=== PATIENT | male | born 1965 | race Caucasian/White ===

== ENCOUNTER 2019-01-08 12:05 | Inpatient (IN) | payer MEDICARE, OTHER ==
[2019-01-08 13:12] LABS: HEMATOCRIT 38.3 % (41.0-60); HEMOGLOBIN 12.9 gm/dL (12-16); MEAN CORPUSCULAR HGB CONC 33.7 pg (28.0-36.0); MEAN PLATELET VOLUME 6.6 fl; RED BLOOD COUNT 4.03 Mil/cmm (4.30-5.70); RED CELL DISTRIBUTION WIDTH 13.1 % (11.5-20.0)
[2019-01-08 13:15] LABS: PLATELET COUNT 79 Th/cmm (150-400); WHITE BLOOD COUNT 3.4 Th/cmm (4.8-10.8)
[2019-01-08 13:24] LABS: ALB/GLOB RATIO 1.6 (1.0-1.8); ALBUMIN 3.8 gm/dL (4.2-5.5); ALKALINE PHOSPHATASE 95 U/L (34-104); BILIRUBIN,TOTAL 1.4 mg/dL (0.3-1.0); BUN - UREA NITROGEN 14 mg/dL (7-25); CALCIUM SERUM 8.6 mg/dL (8.6-10.3); CARBON DIOXIDE 25.8 mEq/L (21.0-31.0); CHLORIDE 105 mEq/L (98-107); CREATININE - SERUM 0.7 mg/dL (0.7-1.3); GFR AFRICAN-AMERICAN > 60.0 ml/min (>90); GFR NON AFRICAN-AMERICAN > 60.0 ml/min; GLUCOSE 133 mg/dL (70-105); MAGNESIUM 1.7 mg/dL (1.9-2.7); POTASSIUM SERUM 3.8 mEq/L (3.5-5.1); SGOT 37 U/L (13-39); SGPT/ALT 41 U/L (7-52); SODIUM SERUM 136 mEq/L (136-145); TOTAL PROTEIN,SERUM 6.2 gm/dL (6.0-8.3)
[2019-01-08 13:40] LABS: BAND NEUTROPHILE 0 % (0-10); BASOPHIL 0 % (0-3); EOSINOPHIL 4 % (0-5); LYMPHOCYTE 32 % (20-50); MONOCYTE 6 % (2-10); NEUTROPHILS 58 % (40-80); PLATELET ESTIMATE DECREASED PLATELETS (NORMAL)
--- NOTE | 2019-01-08 14:02 | Diagnostic Imaging Report ---
CT scan lumbar spine HISTORY: Lower extremity weakness Axial sections were obtained through the lumbar spine. Additional sagittal and coronal reformatted images are provided. The exam of the L5-S1 level demonstrates a relatively large (greater than 5 mm) extradural density which appears related to a relatively large disc protrusion resulting in encroachment on the right anterior aspect of the thecal sac. Calcification noted with in the disc annulus. Associated displacement of the right S1 nerve root. Hypertrophic bony changes noted about the facet joints bilaterally. Bilateral neural foramina encroachment. The L4-5 level demonstrates narrowing of the disc interspace. Air is seen within the interspace reflecting degenerative disc disease. There is a large (8mm) hypertrophic spur that results in a corresponding extradural indentation on the right anterior subarachnoid space with encroachment on the anterior margin of the thecal sac. Combined with hypertrophic bony changes about the facet joints there is a moderate to severe degree of spinal stenosis at this level. Bilateral neural foraminal encroachment. The L3-4 level demonstrates narrowing of the interspace. Air is seen within the interspace reflecting degenerative disc disease. There appears to be a moderate (4 mm) circumferential bulging annulus resulting in a corresponding extradural indentation on the anterior aspect of the thecal sac. Hypertrophic changes about the facet joints as well as posterior ligamentous thickening combine to create a severe degree of spinal stenosis at this level. Bilateral neural foramina encroachment. There is a normal disc contour seen at the L1-2 and L2-3 levels. Atherosclerotic calcification seen in the aorta and iliac artery regions. IMPRESSION: 1. Relatively large multilevel extradural abnormalities L3-4, L4-5, and L5-S1 as described above. Additional degenerative changes as noted above. Combination of findings results in moderate to severe spinal stenosis at L3-4 and L4-5. An MRI exam would provide additional detail and assessment if possible. 2. Atherosclerotic vascular changes
--- NOTE | 2019-01-08 14:02 | Diagnostic Imaging Report ---
Portable chest x-ray HISTORY: Shortness of breath. The heart appears enlarged. No focal pulmonary processes. No hilar or mediastinal abnormalities. IMPRESSION: 1. No acute abnormalities 2. Cardiomegaly
[2019-01-08 14:27] LABS: URINE SOURCE CLEAN C
[2019-01-08 14:34] LABS: URINE BILIRUBIN NEGATIVE (NEGATIVE); URINE BLOOD NEGATIVE (NEGATIVE); URINE GLUCOSE (UA) NEGATIVE (NEGATIVE); URINE KETONE NEGATIVE (NEGATIVE); URINE LEUKOCYTE ESTERASE NEGATIVE (NEGATIVE); URINE NITRATE NEGATIVE (NEGATIVE); URINE PH 5.5 (4.6 - 8.0); URINE PROTEIN NEGATIVE (NEGATIVE)
[2019-01-08 14:48] LABS: URINE CLARITY CLEAR (CLEAR); URINE COLOR YELLOW; URINE MICROSCOPIC INDICATED? YES
[2019-01-08 14:49] LABS: URINE BACTERIA FEW /hpf (NONE SEEN); URINE EPITHELIAL CELLS NONE SEEN /lpf (FEW); URINE RBC NONE SEEN /hpf (0-5); URINE WBC 0-2 /hpf (0-5)
[2019-01-08 15:00] LABS: AMPHETAMINE URINE NEGATIVE (NEGATIVE); BARBITURATES URINE NEGATIVE (NEGATIVE); CANNABINOID THC NEGATIVE (NEGATIVE); COCAINE METABOLITE QUAL URINE NEGATIVE (NEGATIVE); METHADONE URINE NEGATIVE (NEGATIVE); METHAMPHETAMINES QUAL URINE NEGATIVE (NEGATIVE); OPIATES (MORPHINE) QUAL. URINE NEGATIVE (NEGATIVE); PHENCYCLIDINE (PCP) URINE NEGATIVE (NEGATIVE); TRICYCLICS (TCA) QUAL. URINE NEGATIVE (NEGATIVE)
[2019-01-08 15:02] LABS: BENZODIAZEPINES QUAL URINE NEGATIVE (NEGATIVE)
--- NOTE | 2019-01-08 15:02 | ED Physician Chart ---
ED Chief Complaint/HPI - Patient Information Date Seen:: 01/08/19 Time Seen:: 12:05 Chief Complaint:: failure to thrive History of Present Illness:: failure to thrive in a 53 year old male who can no longer take care of himself. Allergies:: Allergies Allergy/AdvReac Type Severity Reaction Status Date / Time No Known Allergies Allergy Verified 01/08/19 12:21 Vitals:: Vital Signs - 8 hr 01/08/19 12:05 Temp 97.7 F HR 61 RR 18 BP 170/83 O2 Sat % 98 Historian:: Patient Review:: Nurse's Note Reviewed ED Review of Systems - Review of Systems General/Constitutional: No fever, No chills, Weakness, No diaphoresis, No loss of appetite, Other (failure to thrive) Skin: No skin lesions, No rash, No bruising Head: No headache, No light-headedness Eyes: No loss of vision, No pain, No diplopia ENT: No earache, No nasal drainage, No sore throat, No tinnitus Neck: No neck pain, No swelling, No thyromegaly, No stiffness, No mass noted Cardio Vascular: No chest pain, No palpitations, No PND, No orthopnea, No edema Pulmonary: No SOB, No cough, No sputum, No wheezing GI: No nausea, No vomiting, No diarrhea, No pain, No melena, No hematochezia, No constipation, No hematemesis G/U: No dysuria, No frequency, No hematuria Musculoskeletal: No bone or joint pain, No muscle pain, Other (chronic BLE weakness from neuropathy and lumbar discs?) Endocrine: No polyuria, No polydipsia Psychiatric: No prior psych history, No depression, No anxiety, No suicidal ideation Hematopoietic: Bruising, No lymphadenopathy Allergic/Immuno: No urticaria, No angioedema Neurological: No syncope, No focal symptoms, No weakness, No paresthesia, No headache, No seizure, No dizziness, No confusion, No vertigo ED Past Medical History - Past Medical History Obtainable: Yes Past Medical History: HTN, DM, Other (neuropathy; morbid obesity; h/o liver failure with some recovery of liver; cirrhosis) Surgical History: other (left knee surgery; esophageal variceal surgery; brain surgery) Family Medical History - Family Member Mother History Unknown: Yes ED Physical Exam - Physical Examination General/Constitutional: Awake, Well-developed, well-nourished, Alert, No distress, GCS 15, Non-toxic appearing, Ambulatory Other Gen/Cons comments:: morbidly obese Head: Atraumatic Eyes: Lids, conjuctiva normal, PERRL, EOMI Other Skin comments:: venous stasis changes on BLE with pencil tipping of all toes from chronically poor blood supply. ENMT: External ears, nose nl Neck: Nontender, No nuchal rigidity, No stridor Respiratory: Nl effort/Exclusion, Clear to Auscultation, No Wheeze/Rhonchi/Rales Cardio Vascular: RRR, No murmur, gallop, rubs, NL S1 S2 GI: No tenderness/rebounding/guarding, No organomegaly, No hernia, Normal BS's, Nondistended Other GI comments:: bruising R abdomen from insulin shot : No CVA tenderness Other Extremities comments:: Strength of BLE is 2/5 to 3/5 (chronic) from diabetic neuropathy vs. lumbar discs vs. spinal stenosis. Neuro/Psych: Alert/oriented, Judgement/insight normal, Mood normal Other Misc comments:: chronic pain to the right of the lumbar spine. ED Labs/Radiology/EKG Results - Lab Results Results: Laboratory Tests 01/08/19 01/08/19 01/08/19 12:57 12:57 12:57 WBC 3.4 L RBC 4.03 L Hgb 12.9 Hct 38.3 L MCV 95.0 MCH 32.0 H MCHC Differential 33.7 RDW 13.1 Plt Count 79 L MPV 6.6 Add Manual Diff YES Band Neutrophils % 0 Neutrophils (Manual) 58 Lymphocytes 32 Monocytes 6 Eosinophils 4 Basophils 0 Platelet Estimate DECREASED PLATELETS Sodium 136 Potassium 3.8 Chloride 105 Carbon Dioxide 25.8 Anion Gap 9.0 BUN 14 Creatinine 0.7 Est GFR ( Amer) > 60.0 Est GFR (Non-Af Amer) > 60.0 BUN/Creatinine Ratio 20.0 Glucose 133 H Whole Bld Lactic Acid Calcium 8.6 Phosphorus 3.0 Magnesium 1.7 L Total Bilirubin 1.4 H AST 37 ALT 41 Alkaline Phosphatase 95 Troponin I Total Protein 6.2 Albumin 3.8 L Globulin 2.4 Albumin/Globulin Ratio 1.6 TSH 0.86 Urine Source Urine Color Urine Clarity Urine pH Ur Specific [place] Urine Protein Urine Glucose (UA) Urine Ketones Urine Blood Urine Nitrate Urine Bilirubin Urine Urobilinogen Ur Leukocyte Esterase Urine RBC Urine WBC Ur Epithelial Cells Urine Bacteria 01/08/19 01/08/19 01/08/19 12:57 12:57 14:10 WBC RBC Hgb Hct MCV MCH MCHC Differential RDW Plt Count MPV Add Manual Diff Band Neutrophils % Neutrophils (Manual) Lymphocytes Monocytes Eosinophils Basophils Platelet Estimate Sodium Potassium Chloride Carbon Dioxide Anion Gap BUN Creatinine Est GFR ( Amer) Est GFR (Non-Af Amer) BUN/Creatinine Ratio Glucose Whole Bld Lactic Acid 0.76 Calcium Phosphorus Magnesium Total Bilirubin AST ALT Alkaline Phosphatase Troponin I 0.03 Total Protein Albumin Globulin Albumin/Globulin Ratio TSH Urine Source CLEAN C Urine Color YELLOW Urine Clarity CLEAR Urine pH 5.5 Ur Specific [place] >= 1.030 Urine Protein NEGATIVE Urine Glucose (UA) NEGATIVE Urine Ketones NEGATIVE Urine Blood NEGATIVE Urine Nitrate NEGATIVE Urine Bilirubin NEGATIVE Urine Urobilinogen 2.0 Ur Leukocyte Esterase NEGATIVE Urine RBC NONE SEEN Urine WBC 0-2 Ur Epithelial Cells NONE SEEN Urine Bacteria FEW ED Assessment - Assessment General Assessment: CXR per my reading: cardiomegaly. Otherwise negative. EKG from 13:03:40 p.m. reveals normal sinus rhythm, RBBB, old inferior infarct. NSSTT wave changes. called Dr. Briones to admit the patient who has agreed to do so. CT scan of the lumbar area reveals relatively large multilevel extradural abnormalities L3-4, L4-5 and L5-S1 as descrbed above. Additional degenerative changes as noted above. Combination of dingins results in moderate to severe spinal stenosis at L3-4 and L4-5. An MRI exam would provide additional detail and assessment if possible. Atherosclerotic vascular changes. ED Septic Shock - . Is Septic Shock (SBP<90, OR Lactate>4 mmol\L) present?: No - <6hrs of presentation: Vital Signs: Vital Signs - 8 hr 01/08/19 12:05 Temp 97.7 F HR 61 RR 18 BP 170/83 O2 Sat % 98 ED Reassessment (Disposition) - Reassessment Reassessment Condition:: Unchanged - Diagnosis Diagnosis:: Failure to thrive Morbid obesity Diabetes Hypertension Neuropathy Spinal stenosis - Patient Disposition Discharge/Transfer:: Acute Care w/in this hosp Admitted to:: Med/Surg Condition at Disposition:: Stable, Unchanged
[2019-01-08] MEDS: D5-0.45NS 1,000 ML IV SCH (18:10)
[2019-01-08] MEDS ORDERED: Hydrocodone/APAP 10 mg/325 mg Tab ONE (18:17)
[2019-01-08] MEDS: Atorvastatin Calcium 10 MG TAB PO SCH (18:17)
[2019-01-08] MEDS: Hydrocodone/APAP 10 mg/325 mg Tab PO PRN (18:18)
[2019-01-09] MEDS: Hydrocodone/APAP 10 mg/325 mg Tab PO PRN ×4 (00:10→23:29)
[2019-01-09 05:00] LABS: % EOSINOPHILS 4.6 % (0.0-5.0); % LYMPHOCYTES 37.1 % (20.0-50.0); % MONOCYTES 8.8 % (2.0-10.0); % NEUTROPHILS 49.5 % (40.0-80.0); EOSINOPHILE ABSOLUTE 0.1 Th/cmm (0.1-0.4); HEMATOCRIT 37.6 % (41.0-60); HEMOGLOBIN 12.9 gm/dL (12-16); MEAN CELL VOLUME 95.1 fl (80-99); MEAN CORPUSCULAR HEMOGLOBIN 32.6 pg (26.0-30.0); MEAN CORPUSCULAR HGB CONC 34.3 pg (28.0-36.0); MEAN PLATELET VOLUME 6.8 fl; MONOCYTE ABSOLUTE 0.2 Th/cmm (0.3-1.0); NEUTROPHILE ABSOLUTE 1.3 Th/cmm (1.8-8.0); PLATELET COUNT 56 Th/cmm (150-400); RED BLOOD COUNT 3.96 Mil/cmm (4.30-5.70); RED CELL DISTRIBUTION WIDTH 12.7 % (11.5-20.0)
[2019-01-09 05:05] LABS: WHITE BLOOD COUNT 2.6 Th/cmm (4.8-10.8)
[2019-01-09 05:13] LABS: ANION GAP 9.6 (7.0-16.0); BUN - UREA NITROGEN 14 mg/dL (7-25); CALCIUM SERUM 8.5 mg/dL (8.6-10.3); CARBON DIOXIDE 26.3 mEq/L (21.0-31.0); CHLORIDE 107 mEq/L (98-107); CREATININE - SERUM 0.7 mg/dL (0.7-1.3); GFR AFRICAN-AMERICAN > 60.0 ml/min (>90); GFR NON AFRICAN-AMERICAN > 60.0 ml/min; GLUCOSE 148 mg/dL (70-105); POTASSIUM SERUM 3.9 mEq/L (3.5-5.1); SODIUM SERUM 139 mEq/L (136-145)
[2019-01-09] MEDS: D5-0.45NS 1,000 ML IV SCH (05:29)
[2019-01-09] MEDS: INSULIN LISPRO 100 UNIT/ML VIAL SUBQ SCH ×3 (07:38→16:38)
[2019-01-09] MEDS: Atorvastatin Calcium 10 MG TAB PO SCH (08:46)
[2019-01-09] MEDS ORDERED: Pneumococcal Vaccine 0.5 mL Vial IM ONE (09:00)
--- NOTE | 2019-01-09 11:41 | History and Physical ---
History of Present Illness - HPI Chief Complaint: Failure to thrive. HPI: CONSTANTINE VASQUEZ MD HISTORY AND PHYSICAL Guillermo Huertas : 1965 Admit date: 01/08/2019 Date: 01/09/2019 H&P Chief complaint Patients current complaint is Failure to thrive. Patient has history of Liver Failure, Weakness of Lower Extremities, Diabetes, Hypertension, Morbid Obesity and Neuropathy. Present illness 53 y/o male patient was recently admitted to [facility] due to complaints of Failure to thrive. Patient has history of Liver Failure, Weakness of Lower Extremities, Diabetes, Hypertension, Morbid Obesity and Neuropathy. Patient was diagnosed with Failure to Thrive, Chronic Bilateral Lower Extremities Weakness from Neuropathy, Neuropathy, Diabetes, Hypertension, Spinal Stenosis and Morbid Obesity. Patient had a complete workup done. I will follow patient, treat and monitor accordingly. Patient will have a Neurology consult and Patient will have Physical Therapy and Rehabilitation. Patient was transferred here on January 08, 2019 for further care management. Review of systems Vitals: Reviewed. General: Normotensive, in no acute distress. Head: Normocephalic, no lesions. Eyes: PERRLA, EOM'S full, conjunctive clear, fundi grossly normal. Neck: Supple, no masses, no thyromegaly, no bruits. Lungs: Clear, no rales, no rhonchi, no wheezes. Heart: RR, no murmurs, no rubs, no gallops. Abdomen: Soft, no tenderness, no masses, BS normal. Musculoskeletal: Chronic Bilateral Lower Extremities Weakness. Psych: Normal mood and affect. Skin: Venous stasis changes on BLE with pencil topping of all toes. Neurological: Denies headache and loss of consciousness. Past medical history Liver Failure, Weakness of Lower Extremities, Diabetes, Hypertension, Morbid Obesity and Neuropathy. Past surgical history Brain Surgery; Esophageal Variceal Surgery and Left Knee Surgery. Medications Please refer to medication reconciliation sheet. Allergies No known drug allergy. Family history Noncontributory. Social history Nonsmoker, No Alcohol use, No drug abuse. Physical Exam- HEENT: Head is normocephalic, atraumatic. NECK: Supple. No JVD. No carotid bruit. CHEST: Bilateral breath sounds. No crackles. No wheezing. HEART: S1, S2 within normal limits. Regular rhythm. No murmur. No gallop. ABDOMEN: soft, non-tender, non-distended. Bowel sounds present. EXTREMITIES: Chronic Bilateral Lower Extremities Weakness. NEUROLOGIC: Alert oriented x 3. Assessment and Impression Failure to Thrive. Diabetes Chronic Bilateral Lower Extremities Weakness from Neuropathy. Neuropathy. Hypertension. Spinal Stenosis. Morbid Obesity. Plan Continuation of care Continue present meds as directed Monitor vitals, continue B/P meds Accu-check daily, continue DM meds Monitor Diet/Nutritional support Neurology consult Monitor Pain, Pain Management Physical Therapy and Rehabilitation Occupational Therapy Fall precaution Safety precaution Supportive care Will Monitor patient and continue current treatment plan as ordered. Vital Signs: Last Vital Signs Temp 97.1 F 01/09/19 04:00 Pulse 57 01/09/19 04:00 Resp 18 01/09/19 08:00 BP 130/65 01/09/19 04:00 Pulse Ox 99 01/09/19 04:00 Past Medical History Cardiovascular: Report: HTN Pulmonary: Report: No Pertinent Hx SR. OPERATIONS MANAGER: Report: Other (Neuropathy.) GI: Report: No Pertinent Hx Psych: Report: No Pertinent Hx Musculoskeletal: Report: Weakness, Other (Chronic pain of lumbar spine.) Rheumatologic: Report: No pertinent Hx Infectious Disease: Report: No Pertinent Hx Renal/: Report: No Pertinent Hx Endocrine: Report: Diabetes Dermatology: Report: No Pertinent Hx - Past Surgical History Past Surgical History: Other (History of Brain Surgery, Esophageal Variceal and Left knee surgery.) Family Medical History - Family Member Mother History Unknown: Yes Hx Family Hypertension: Yes Social History Smoke: No Alcohol: None Drugs: None Domestic Violence: Negative - Medications Home Medications: Home Medication Medication Instructions Recorded Type Atorvastatin Calcium [Lipitor] 20 mg PO DAILY 01/08/19 History Ergocalciferol (Vitamin D2) 2,000 unit PO DAILY 01/08/19 History [Vitamin D2] Gabapentin 300 mg PO TID 01/08/19 History Insulin Glargine,Hum.rec.anlog 60 unit SUBQ BID 01/08/19 History [Lantus Solostar] Insulin Lispro [Humalog] 60 unit SQ BID 01/08/19 History Levetiracetam [Keppra] 1 tab PO BID 01/08/19 History Oxycodone HCl [Oxycodone HCl ER] 15 mg PO BID PRN 01/08/19 History Propranolol HCl [Inderal*] 1 tab PO DAILY 01/08/19 History Trazodone HCl 1 tab PO DAILY 01/08/19 History metFORMIN [Glucophage] 1 tab PO BID 01/08/19 History tiZANidine HCl [Zanaflex*] 4 mg PO TID 01/08/19 History - Allergies Allergies/Adverse Reactions: Allergies Allergy/AdvReac Type Severity Reaction Status Date / Time No Known Allergies Allergy Verified 01/08/19 12:21 - Lab Results All Lab Results last 24 hours: Laboratory Results - last 24 hr 01/08/19 01/08/19 01/08/19 12:57 12:57 12:57 WBC 3.4 L RBC 4.03 L Hgb 12.9 Hct 38.3 L MCV 95.0 MCH 32.0 H MCHC Differential 33.7 RDW 13.1 Plt Count 79 L MPV 6.6 Add Manual Diff YES Neutrophils % Band Neutrophils % 0 Lymphocytes % Monocytes % Eosinophils % Basophils % Neutrophils (Manual) 58 Lymphocytes 32 Monocytes 6 Eosinophils 4 Basophils 0 Platelet Estimate DECREASED PLATELETS Sodium 136 Potassium 3.8 Chloride 105 Carbon Dioxide 25.8 Anion Gap 9.0 BUN 14 Creatinine 0.7 Est GFR ( Amer) > 60.0 Est GFR (Non-Af Amer) > 60.0 BUN/Creatinine Ratio 20.0 Glucose 133 H POC Glucose Whole Bld Lactic Acid Calcium 8.6 Phosphorus 3.0 Magnesium 1.7 L Total Bilirubin 1.4 H AST 37 ALT 41 Alkaline Phosphatase 95 Troponin I Total Protein 6.2 Albumin 3.8 L Globulin 2.4 Albumin/Globulin Ratio 1.6 TSH 0.86 Urine Source Urine Color Urine Clarity Urine pH Ur Specific [place] Urine Protein Urine Glucose (UA) Urine Ketones Urine Blood Urine Nitrate Urine Bilirubin Urine Urobilinogen Ur Leukocyte Esterase Urine RBC Urine WBC Ur Epithelial Cells Urine Bacteria Urine Opiates Screen Urine Methadone Screen Ur Barbiturates Screen Ur Tricyclics Screen Ur Phencyclidine Scrn Amphetamines Screen U Methamphetamines Scrn U Benzodiazepines Scrn U Cocaine Metab Screen U Cannabinoids Screen 01/08/19 01/08/19 01/08/19 12:57 12:57 14:00 WBC RBC Hgb Hct MCV MCH MCHC Differential RDW Plt Count MPV Add Manual Diff Neutrophils % Band Neutrophils % Lymphocytes % Monocytes % Eosinophils % Basophils % Neutrophils (Manual) Lymphocytes Monocytes Eosinophils Basophils Platelet Estimate Sodium Potassium Chloride Carbon Dioxide Anion Gap BUN Creatinine Est GFR ( Amer) Est GFR (Non-Af Amer) BUN/Creatinine Ratio Glucose POC Glucose Whole Bld Lactic Acid 0.76 Calcium Phosphorus Magnesium Total Bilirubin AST ALT Alkaline Phosphatase Troponin I 0.03 Total Protein Albumin Globulin Albumin/Globulin Ratio TSH Urine Source Urine Color Urine Clarity Urine pH Ur Specific [place] Urine Protein Urine Glucose (UA) Urine Ketones Urine Blood Urine Nitrate Urine Bilirubin Urine Urobilinogen Ur Leukocyte Esterase Urine RBC Urine WBC Ur Epithelial Cells Urine Bacteria Urine Opiates Screen NEGATIVE Urine Methadone Screen NEGATIVE Ur Barbiturates Screen NEGATIVE Ur Tricyclics Screen NEGATIVE Ur Phencyclidine Scrn NEGATIVE Amphetamines Screen NEGATIVE U Methamphetamines Scrn NEGATIVE U Benzodiazepines Scrn NEGATIVE U Cocaine Metab Screen NEGATIVE U Cannabinoids Screen NEGATIVE 01/08/19 01/09/19 01/09/19 14:10 04:40 04:40 WBC 2.6 L RBC 3.96 L Hgb 12.9 Hct 37.6 L MCV 95.1 MCH 32.6 H MCHC Differential 34.3 RDW 12.7 Plt Count 56 L MPV 6.8 Add Manual Diff Neutrophils % 49.5 Band Neutrophils % Lymphocytes % 37.1 Monocytes % 8.8 Eosinophils % 4.6 Basophils % 0.0 Neutrophils (Manual) Lymphocytes Monocytes Eosinophils Basophils Platelet Estimate Sodium 139 Potassium 3.9 Chloride 107 Carbon Dioxide 26.3 Anion Gap 9.6 BUN 14 Creatinine 0.7 Est GFR ( Amer) > 60.0 Est GFR (Non-Af Amer) > 60.0 BUN/Creatinine Ratio 20.0 Glucose 148 H POC Glucose Whole Bld Lactic Acid Calcium 8.5 L Phosphorus Magnesium Total Bilirubin AST ALT Alkaline Phosphatase Troponin I Total Protein Albumin Globulin Albumin/Globulin Ratio TSH Urine Source CLEAN C Urine Color YELLOW Urine Clarity CLEAR Urine pH 5.5 Ur Specific [place] >= 1.030 Urine Protein NEGATIVE Urine Glucose (UA) NEGATIVE Urine Ketones NEGATIVE Urine Blood NEGATIVE Urine Nitrate NEGATIVE Urine Bilirubin NEGATIVE Urine Urobilinogen 2.0 Ur Leukocyte Esterase NEGATIVE Urine RBC NONE SEEN Urine WBC 0-2 Ur Epithelial Cells NONE SEEN Urine Bacteria FEW Urine Opiates Screen Urine Methadone Screen Ur Barbiturates Screen Ur Tricyclics Screen Ur Phencyclidine Scrn Amphetamines Screen U Methamphetamines Scrn U Benzodiazepines Scrn U Cocaine Metab Screen U Cannabinoids Screen 01/09/19 06:54 WBC RBC Hgb Hct MCV MCH MCHC Differential RDW Plt Count MPV Add Manual Diff Neutrophils % Band Neutrophils % Lymphocytes % Monocytes % Eosinophils % Basophils % Neutrophils (Manual) Lymphocytes Monocytes Eosinophils Basophils Platelet Estimate Sodium Potassium Chloride Carbon Dioxide Anion Gap BUN Creatinine Est GFR ( Amer) Est GFR (Non-Af Amer) BUN/Creatinine Ratio Glucose POC Glucose 133 H Whole Bld Lactic Acid Calcium Phosphorus Magnesium Total Bilirubin AST ALT Alkaline Phosphatase Troponin I Total Protein Albumin Globulin Albumin/Globulin Ratio TSH Urine Source Urine Color Urine Clarity Urine pH Ur Specific [place] Urine Protein Urine Glucose (UA) Urine Ketones Urine Blood Urine Nitrate Urine Bilirubin Urine Urobilinogen Ur Leukocyte Esterase Urine RBC Urine WBC Ur Epithelial Cells Urine Bacteria Urine Opiates Screen Urine Methadone Screen Ur Barbiturates Screen Ur Tricyclics Screen Ur Phencyclidine Scrn Amphetamines Screen U Methamphetamines Scrn U Benzodiazepines Scrn U Cocaine Metab Screen U Cannabinoids Screen
--- NOTE | 2019-01-09 12:00 | History and Physical ---
History of Present Illness - HPI Vital Signs: Last Vital Signs Temp 97.1 F 01/09/19 04:00 Pulse 57 01/09/19 04:00 Resp 18 01/09/19 08:00 BP 130/65 01/09/19 04:00 Pulse Ox 99 01/09/19 04:00 Family Medical History - Family Member Mother History Unknown: Yes Hx Family Hypertension: Yes - Medications Home Medications: Home Medication Medication Instructions Recorded Type Atorvastatin Calcium [Lipitor] 20 mg PO DAILY 01/08/19 History Ergocalciferol (Vitamin D2) 2,000 unit PO DAILY 01/08/19 History [Vitamin D2] Gabapentin 300 mg PO TID 01/08/19 History Insulin Glargine,Hum.rec.anlog 60 unit SUBQ BID 01/08/19 History [Lantus Solostar] Insulin Lispro [Humalog] 60 unit SQ BID 01/08/19 History Levetiracetam [Keppra] 1 tab PO BID 01/08/19 History Oxycodone HCl [Oxycodone HCl ER] 15 mg PO BID PRN 01/08/19 History Propranolol HCl [Inderal*] 1 tab PO DAILY 01/08/19 History Trazodone HCl 1 tab PO DAILY 01/08/19 History metFORMIN [Glucophage] 1 tab PO BID 01/08/19 History tiZANidine HCl [Zanaflex*] 4 mg PO TID 01/08/19 History - Allergies Allergies/Adverse Reactions: Allergies Allergy/AdvReac Type Severity Reaction Status Date / Time No Known Allergies Allergy Verified 01/08/19 12:21 - Lab Results All Lab Results last 24 hours: Laboratory Results - last 24 hr 01/08/19 01/08/19 01/08/19 12:57 12:57 12:57 WBC 3.4 L RBC 4.03 L Hgb 12.9 Hct 38.3 L MCV 95.0 MCH 32.0 H MCHC Differential 33.7 RDW 13.1 Plt Count 79 L MPV 6.6 Add Manual Diff YES Neutrophils % Band Neutrophils % 0 Lymphocytes % Monocytes % Eosinophils % Basophils % Neutrophils (Manual) 58 Lymphocytes 32 Monocytes 6 Eosinophils 4 Basophils 0 Platelet Estimate DECREASED PLATELETS Sodium 136 Potassium 3.8 Chloride 105 Carbon Dioxide 25.8 Anion Gap 9.0 BUN 14 Creatinine 0.7 Est GFR ( Amer) > 60.0 Est GFR (Non-Af Amer) > 60.0 BUN/Creatinine Ratio 20.0 Glucose 133 H POC Glucose Whole Bld Lactic Acid Calcium 8.6 Phosphorus 3.0 Magnesium 1.7 L Total Bilirubin 1.4 H AST 37 ALT 41 Alkaline Phosphatase 95 Troponin I Total Protein 6.2 Albumin 3.8 L Globulin 2.4 Albumin/Globulin Ratio 1.6 TSH 0.86 Urine Source Urine Color Urine Clarity Urine pH Ur Specific [place] Urine Protein Urine Glucose (UA) Urine Ketones Urine Blood Urine Nitrate Urine Bilirubin Urine Urobilinogen Ur Leukocyte Esterase Urine RBC Urine WBC Ur Epithelial Cells Urine Bacteria Urine Opiates Screen Urine Methadone Screen Ur Barbiturates Screen Ur Tricyclics Screen Ur Phencyclidine Scrn Amphetamines Screen U Methamphetamines Scrn U Benzodiazepines Scrn U Cocaine Metab Screen U Cannabinoids Screen 01/08/19 01/08/19 01/08/19 12:57 12:57 14:00 WBC RBC Hgb Hct MCV MCH MCHC Differential RDW Plt Count MPV Add Manual Diff Neutrophils % Band Neutrophils % Lymphocytes % Monocytes % Eosinophils % Basophils % Neutrophils (Manual) Lymphocytes Monocytes Eosinophils Basophils Platelet Estimate Sodium Potassium Chloride Carbon Dioxide Anion Gap BUN Creatinine Est GFR ( Amer) Est GFR (Non-Af Amer) BUN/Creatinine Ratio Glucose POC Glucose Whole Bld Lactic Acid 0.76 Calcium Phosphorus Magnesium Total Bilirubin AST ALT Alkaline Phosphatase Troponin I 0.03 Total Protein Albumin Globulin Albumin/Globulin Ratio TSH Urine Source Urine Color Urine Clarity Urine pH Ur Specific [place] Urine Protein Urine Glucose (UA) Urine Ketones Urine Blood Urine Nitrate Urine Bilirubin Urine Urobilinogen Ur Leukocyte Esterase Urine RBC Urine WBC Ur Epithelial Cells Urine Bacteria Urine Opiates Screen NEGATIVE Urine Methadone Screen NEGATIVE Ur Barbiturates Screen NEGATIVE Ur Tricyclics Screen NEGATIVE Ur Phencyclidine Scrn NEGATIVE Amphetamines Screen NEGATIVE U Methamphetamines Scrn NEGATIVE U Benzodiazepines Scrn NEGATIVE U Cocaine Metab Screen NEGATIVE U Cannabinoids Screen NEGATIVE 01/08/19 01/09/19 01/09/19 14:10 04:40 04:40 WBC 2.6 L RBC 3.96 L Hgb 12.9 Hct 37.6 L MCV 95.1 MCH 32.6 H MCHC Differential 34.3 RDW 12.7 Plt Count 56 L MPV 6.8 Add Manual Diff Neutrophils % 49.5 Band Neutrophils % Lymphocytes % 37.1 Monocytes % 8.8 Eosinophils % 4.6 Basophils % 0.0 Neutrophils (Manual) Lymphocytes Monocytes Eosinophils Basophils Platelet Estimate Sodium 139 Potassium 3.9 Chloride 107 Carbon Dioxide 26.3 Anion Gap 9.6 BUN 14 Creatinine 0.7 Est GFR ( Amer) > 60.0 Est GFR (Non-Af Amer) > 60.0 BUN/Creatinine Ratio 20.0 Glucose 148 H POC Glucose Whole Bld Lactic Acid Calcium 8.5 L Phosphorus Magnesium Total Bilirubin AST ALT Alkaline Phosphatase Troponin I Total Protein Albumin Globulin Albumin/Globulin Ratio TSH Urine Source CLEAN C Urine Color YELLOW Urine Clarity CLEAR Urine pH 5.5 Ur Specific [place] >= 1.030 Urine Protein NEGATIVE Urine Glucose (UA) NEGATIVE Urine Ketones NEGATIVE Urine Blood NEGATIVE Urine Nitrate NEGATIVE Urine Bilirubin NEGATIVE Urine Urobilinogen 2.0 Ur Leukocyte Esterase NEGATIVE Urine RBC NONE SEEN Urine WBC 0-2 Ur Epithelial Cells NONE SEEN Urine Bacteria FEW Urine Opiates Screen Urine Methadone Screen Ur Barbiturates Screen Ur Tricyclics Screen Ur Phencyclidine Scrn Amphetamines Screen U Methamphetamines Scrn U Benzodiazepines Scrn U Cocaine Metab Screen U Cannabinoids Screen 01/09/19 06:54 WBC RBC Hgb Hct MCV MCH MCHC Differential RDW Plt Count MPV Add Manual Diff Neutrophils % Band Neutrophils % Lymphocytes % Monocytes % Eosinophils % Basophils % Neutrophils (Manual) Lymphocytes Monocytes Eosinophils Basophils Platelet Estimate Sodium Potassium Chloride Carbon Dioxide Anion Gap BUN Creatinine Est GFR ( Amer) Est GFR (Non-Af Amer) BUN/Creatinine Ratio Glucose POC Glucose 133 H Whole Bld Lactic Acid Calcium Phosphorus Magnesium Total Bilirubin AST ALT Alkaline Phosphatase Troponin I Total Protein Albumin Globulin Albumin/Globulin Ratio TSH Urine Source Urine Color Urine Clarity Urine pH Ur Specific [place] Urine Protein Urine Glucose (UA) Urine Ketones Urine Blood Urine Nitrate Urine Bilirubin Urine Urobilinogen Ur Leukocyte Esterase Urine RBC Urine WBC Ur Epithelial Cells Urine Bacteria Urine Opiates Screen Urine Methadone Screen Ur Barbiturates Screen Ur Tricyclics Screen Ur Phencyclidine Scrn Amphetamines Screen U Methamphetamines Scrn U Benzodiazepines Scrn U Cocaine Metab Screen U Cannabinoids Screen
--- NOTE | 2019-01-09 16:20 | History and Physical ---
History of Present Illness - HPI Chief Complaint: body aches HPI: This is a 53-year old male who is admitted [facility] c/o 1 day history of body aches, patient states that he is not sure if he can take care of himself anymore. Vital Signs: Last Vital Signs Temp 97.9 F 01/09/19 16:00 Pulse 60 01/09/19 16:00 Resp 20 01/09/19 16:00 BP 163/75 01/09/19 16:00 Pulse Ox 100 01/09/19 16:00 Past Medical History Other History: HTN, DM, neuropathy; morbid obesity; h/o liver failure with some recovery of liver; cirrhosis Family Medical History - Family Member Mother History Unknown: Yes Hx Family Hypertension: Yes Social History Smoke: No Alcohol: None Drugs: None Lives: With Family - Medications Home Medications: Home Medication Medication Instructions Recorded Type Atorvastatin Calcium [Lipitor] 20 mg PO DAILY 01/08/19 History Ergocalciferol (Vitamin D2) 2,000 unit PO DAILY 01/08/19 History [Vitamin D2] Gabapentin 300 mg PO TID 01/08/19 History Insulin Glargine,Hum.rec.anlog 60 unit SUBQ BID 01/08/19 History [Lantus Solostar] Insulin Lispro [Humalog] 60 unit SQ BID 01/08/19 History Levetiracetam [Keppra] 1 tab PO BID 01/08/19 History Oxycodone HCl [Oxycodone HCl ER] 15 mg PO BID PRN 01/08/19 History Propranolol HCl [Inderal*] 1 tab PO DAILY 01/08/19 History Trazodone HCl 1 tab PO DAILY 01/08/19 History metFORMIN [Glucophage] 1 tab PO BID 01/08/19 History tiZANidine HCl [Zanaflex*] 4 mg PO TID 01/08/19 History - Allergies Allergies/Adverse Reactions: Allergies Allergy/AdvReac Type Severity Reaction Status Date / Time No Known Allergies Allergy Verified 01/08/19 12:21 Review of Systems - Review of Systems Constitutional: Report: Weakness Eyes: Report: No Significant Respiratory: Report: No Significant Cardiovascular: Report: No Significant Musculoskeletal: Report: Other (body pain) Neurological: Report: Weakness Physical Exam - Physical Exam HEENT: Report: Ears Nose Throat within normal limits Neck: Report: Within normal limits Cardiovascular Systems: Report: +s1/s2 noted, Regular, Rate and Rhythm Respiratory: Report: Breath Sounds are within normal limits Abdomen: Report: Non-tender to palpation Back: Report: Inspection of back is within normal limits. Skin: Report: Color of skin is within normal limits, Warm, Dry Neuro/Psych: Report: Mood affect is within normal limits - Lab Results All Lab Results last 24 hours: Laboratory Results - last 24 hr 01/09/19 01/09/19 01/09/19 04:40 04:40 06:54 WBC 2.6 L RBC 3.96 L Hgb 12.9 Hct 37.6 L MCV 95.1 MCH 32.6 H MCHC Differential 34.3 RDW 12.7 Plt Count 56 L MPV 6.8 Neutrophils % 49.5 Lymphocytes % 37.1 Monocytes % 8.8 Eosinophils % 4.6 Basophils % 0.0 Sodium 139 Potassium 3.9 Chloride 107 Carbon Dioxide 26.3 Anion Gap 9.6 BUN 14 Creatinine 0.7 Est GFR ( Amer) > 60.0 Est GFR (Non-Af Amer) > 60.0 BUN/Creatinine Ratio 20.0 Glucose 148 H POC Glucose 133 H Calcium 8.5 L 01/09/19 11:37 WBC RBC Hgb Hct MCV MCH MCHC Differential RDW Plt Count MPV Neutrophils % Lymphocytes % Monocytes % Eosinophils % Basophils % Sodium Potassium Chloride Carbon Dioxide Anion Gap BUN Creatinine Est GFR ( Amer) Est GFR (Non-Af Amer) BUN/Creatinine Ratio Glucose POC Glucose 147 H Calcium Microbiology 01/08/19 13:55 - Preliminary Blood NO GROWTH AFTER 24 HOURS - Assessment Assessment: GENERALIZED WEAKNESS DM2 HTN MORBID OBESITY HX LIVER FAILURE WITH CIRRHOSIS ) - Plan Plan: PT/OT LIVER U/S AM LABS MAY NEED SNF PLACEMENT FOR REHAB
[2019-01-09] MEDS ORDERED: INSULIN LISPRO 60 UNIT SQ SCH (17:00)
[2019-01-09] MEDS ORDERED: INSULIN GLARGINE HUM REC ANLOG 60 UNIT SUBQ SCH (17:00)
--- NOTE | 2019-01-10 02:13 | Consultation ---
DATE OF CONSULTATION: 01/09/2019 INPATIENT GASTROENTEROLOGY CONSULTATION CONSULTINT PHYSICIAN: Dr. Briones. REASON FOR CONSULTATION: History of liver cirrhosis. HISTORY OF PRESENT ILLNESS: The patient is a 53-year-old male with a history of liver cirrhosis related to alcoholism, lower back pain, admitted to the hospital apparently for chronic pain and failure to thrive. The patient reports that he was told to come to the hospital as he had reported to his dialysis social worker he is unable to take care of himself and he is in too much pain to be on his own. He was apparently then told to come into the ER and be admitted eventually for placement. The patient notes that he was a previous heavy alcoholic, but now only drinks about once a month. He has a history of liver cirrhosis and reports previously decompensated by esophageal variceal bleed in the past requiring band ligation prior; however, he has not had any issues with bleeding for the past 5 years. He denies any abdominal ascites or issues with hepatic encephalopathy. At the current time, his main complaint is his back pain and he is able to eat well without any issue. Denies any melena or hematemesis. PAST MEDICAL HISTORY: Liver cirrhosis due to alcoholism, hypertension, hyperlipidemia, type 2 diabetes. PAST SURGICAL HISTORY: He has had variceal band ligation in the past. He has had back surgery and brain surgery. FAMILY HISTORY: Noncontributory. SOCIAL HISTORY: The patient does still drink alcohol, though he thinks once a month. Denies other illicit drugs. ALLERGIES: No known drug allergies. REVIEW OF SYSTEMS: A 12-point review of systems was performed the patient is negative and the pertinent positives mentioned in the history of present illness. MEDICATIONS: Include Lipitor, [place], Flexeril, Humalog, Keppra, magnesium, Glucophage, OxyContin, Zanaflex, trazodone. PHYSICAL EXAMINATION: VITAL SIGNS: Blood pressure 130/65, pulse 57 beats per minute, temperature 97.1, oxygenation 99%. GENERAL: The patient sitting upright, eating breakfast. He is alert and oriented x 3, no apparent distress. HEAD, EARS, EYES, NOSE AND THROAT: Normocephalic, atraumatic appearing head. Pupils are equal and reactive to light. Extraocular muscles are intact. Moist mucous membranes. NECK: Supple. No JVD or thyromegaly or lymphadenopathy. CHEST: Clear to auscultation bilaterally. CARDIOVASCULAR: S1, S2 are present, regular rate and rhythm. ABDOMEN: Obese, soft and nontender to palpation. No obvious guarding or rebound, no fluid distention. EXTREMITIES: 1+ pitting edema bilaterally. Pulses are not present. SKIN: There is no obvious jaundice. LABORATORY DATA: White blood cell count 2.6, hemoglobin 12.9, platelet count 56. Sodium 139, BUN 9.6, creatinine 0.7, AST 37, ALT 41, total bilirubin 1.4. IMAGING: No abdominal imaging has been performed. IMPRESSION: This is a 53-year-old male with history of chronic back pain, alcoholic cirrhosis previously decompensated by variceal bleeding, admitted to the hospital with [id number] back pain. 1. Liver cirrhosis due to alcoholism. 2. History of variceal bleeding. 3. Acute on chronic back pain. DISCUSSION: It does not appear that his liver cirrhosis is an active issue at this time as his main complaint is his back issues. He does not appear to be decompensated from a cirrhotic point of view, although we can get an abdominal ultrasound to look for any evidence of ascites and do a hepatoma screening. He does have a low platelet count, which is likely related to the ongoing alcoholism and liver cirrhosis. He is asking for pain medication and to be placed in a board and care facility, which will be up to Dr. Briones. RECOMMENDATIONS: 1. We will order an abdominal ultrasound for hepatoma screening and ascites screening. 2. We will add on an INR for tomorrow morning. 3. Avoid alcohol if possible. 4. Trend LFTs. 5. There is no evidence of any hepatic encephalopathy, thus I do not think any lactulose or rifaximin is necessary. 6. Management of the patient's back pain and placement issues as per Dr. Briones. Thank you for allowing me to participate in his care. Please call me for any further questions. JOB# [id number]
[2019-01-10 06:27] LABS: HEMATOCRIT 35.7 % (41.0-60); MEAN CELL VOLUME 94.3 fl (80-99); MEAN CORPUSCULAR HEMOGLOBIN 31.9 pg (26.0-30.0); MEAN CORPUSCULAR HGB CONC 33.8 pg (28.0-36.0); MEAN PLATELET VOLUME 6.8 fl; RED BLOOD COUNT 3.79 Mil/cmm (4.30-5.70)
[2019-01-10 06:37] LABS: INR 1.13 (0.5-1.4); PROTHROMBIN TIME (TEST) 11.6 SECONDS (9.5-11.5)
[2019-01-10 06:42] LABS: WHITE BLOOD COUNT 2.6 Th/cmm (4.8-10.8)
[2019-01-10 06:43] LABS: HEMOGLOBIN 12.1 gm/dL (12-16); PLATELET COUNT 62 Th/cmm (150-400)
[2019-01-10 06:51] LABS: ANION GAP 9.9 (7.0-16.0); BUN - UREA NITROGEN 13 mg/dL (7-25); CALCIUM SERUM 8.3 mg/dL (8.6-10.3); CHLORIDE 108 mEq/L (98-107); CREATININE - SERUM 0.7 mg/dL (0.7-1.3); GFR AFRICAN-AMERICAN > 60.0 ml/min (>90); GFR NON AFRICAN-AMERICAN > 60.0 ml/min; GLUCOSE 118 mg/dL (70-105); POTASSIUM SERUM 3.9 mEq/L (3.5-5.1); SODIUM SERUM 140 mEq/L (136-145)
[2019-01-10 07:44] LABS: BAND NEUTROPHILE 0 % (0-10); NEUTROPHILS 50 % (40-80)
[2019-01-10 07:45] LABS: BASOPHIL 0 % (0-3); EOSINOPHIL 4 % (0-5); LYMPHOCYTE 38 % (20-50); MONOCYTE 8 % (2-10); PLATELET ESTIMATE DECREASED PLATELETS (NORMAL)
[2019-01-10] MEDS: INSULIN LISPRO 100 UNIT/ML VIAL SUBQ SCH ×3 (07:59→16:25)
[2019-01-10] MEDS: Atorvastatin Calcium 10 MG TAB PO SCH (08:41)
[2019-01-10] MEDS: Vitamin D3 2,000 IU SGL PO SCH (08:43)
--- NOTE | 2019-01-10 08:48 | GI Progress Note ---
Subjective - Review of Systems Service Date: 01/10/19 Subjective: No new issues Objective - Results Result Diagrams: 01/10/19 05:40 01/10/19 05:40 Recent Labs: Laboratory Last Values WBC 2.6 Th/cmm (4.8-10.8) L 01/10/19 05:40 RBC 3.79 Mil/cmm (4.30-5.70) L 01/10/19 05:40 Hgb 12.1 gm/dL (12-16) 01/10/19 05:40 Hct 35.7 % (41.0-60) L 01/10/19 05:40 MCV 94.3 fl (80-99) 01/10/19 05:40 MCH 31.9 pg (26.0-30.0) H 01/10/19 05:40 MCHC Differential 33.8 pg (28.0-36.0) 01/10/19 05:40 RDW 13.0 % (11.5-20.0) 01/10/19 05:40 Plt Count 62 Th/cmm (150-400) L 01/10/19 05:40 MPV 6.8 fl 01/10/19 05:40 Add Manual Diff YES 01/10/19 05:40 Neutrophils % 49.5 % (40.0-80.0) 01/09/19 04:40 Band Neutrophils % 0 % (0-10) 01/10/19 05:40 Lymphocytes % 37.1 % (20.0-50.0) 01/09/19 04:40 Monocytes % 8.8 % (2.0-10.0) 01/09/19 04:40 Eosinophils % 4.6 % (0.0-5.0) 01/09/19 04:40 Basophils % 0.0 % (0.0-2.0) 01/09/19 04:40 Neutrophils (Manual) 50 % (40-80) 01/10/19 05:40 Lymphocytes 38 % (20-50) 01/10/19 05:40 Monocytes 8 % (2-10) 01/10/19 05:40 Eosinophils 4 % (0-5) 01/10/19 05:40 Basophils 0 % (0-3) 01/10/19 05:40 Platelet Estimate DECREASED PLATELETS (NORMAL) 01/10/19 05:40 PT 11.6 SECONDS (9.5-11.5) H 01/10/19 05:40 INR 1.13 (0.5-1.4) 01/10/19 05:40 Sodium 140 mEq/L (136-145) 01/10/19 05:40 Potassium 3.9 mEq/L (3.5-5.1) 01/10/19 05:40 Chloride 108 mEq/L (98-107) H 01/10/19 05:40 Carbon Dioxide 26.0 mEq/L (21.0-31.0) 01/10/19 05:40 Anion Gap 9.9 (7.0-16.0) 01/10/19 05:40 BUN 13 mg/dL (7-25) 01/10/19 05:40 Creatinine 0.7 mg/dL (0.7-1.3) 01/10/19 05:40 Est GFR ( Amer) > 60.0 ml/min (>90) 01/10/19 05:40 Est GFR (Non-Af Amer) > 60.0 ml/min 01/10/19 05:40 BUN/Creatinine Ratio 18.6 01/10/19 05:40 Glucose 118 mg/dL (70-105) H 01/10/19 05:40 POC Glucose 99 MG/DL (70 - 105) 01/10/19 06:59 Whole Bld Lactic Acid 0.76 mmol/L (0.60-1.99) 01/08/19 12:57 Calcium 8.3 mg/dL (8.6-10.3) L 01/10/19 05:40 Phosphorus 3.0 mg/dL (2.5-5.0) 01/08/19 12:57 Magnesium 1.7 mg/dL (1.9-2.7) L 01/08/19 12:57 Total Bilirubin 1.4 mg/dL (0.3-1.0) H 01/08/19 12:57 AST 37 U/L (13-39) 01/08/19 12:57 ALT 41 U/L (7-52) 01/08/19 12:57 Alkaline Phosphatase 95 U/L (34-104) 01/08/19 12:57 Troponin I 0.03 ng/mL (0.01-0.05) 01/08/19 12:57 Total Protein 6.2 gm/dL (6.0-8.3) 01/08/19 12:57 Albumin 3.8 gm/dL (4.2-5.5) L 01/08/19 12:57 Globulin 2.4 gm/dL 01/08/19 12:57 Albumin/Globulin Ratio 1.6 (1.0-1.8) 01/08/19 12:57 TSH 0.86 uIU/ml (0.34-5.60) 01/08/19 12:57 Urine Source CLEAN C 01/08/19 14:10 Urine Color YELLOW 01/08/19 14:10 Urine Clarity CLEAR (CLEAR) 01/08/19 14:10 Urine pH 5.5 (4.6 - 8.0) 01/08/19 14:10 Ur Specific [place] >= 1.030 (1.005-1.030) 01/08/19 14:10 Urine Protein NEGATIVE mg/dL (NEGATIVE) 01/08/19 14:10 Urine Glucose (UA) NEGATIVE mg/dL (NEGATIVE) 01/08/19 14:10 Urine Ketones NEGATIVE mg/dL (NEGATIVE) 01/08/19 14:10 Urine Blood NEGATIVE (NEGATIVE) 01/08/19 14:10 Urine Nitrate NEGATIVE (NEGATIVE) 01/08/19 14:10 Urine Bilirubin NEGATIVE (NEGATIVE) 01/08/19 14:10 Urine Urobilinogen 2.0 E.U./dL (0.2 - 1.0) 01/08/19 14:10 Ur Leukocyte Esterase NEGATIVE (NEGATIVE) 01/08/19 14:10 Urine RBC NONE SEEN /hpf (0-5) 01/08/19 14:10 Urine WBC 0-2 /hpf (0-5) 01/08/19 14:10 Ur Epithelial Cells NONE SEEN /lpf (FEW) 01/08/19 14:10 Urine Bacteria FEW /hpf (NONE SEEN) 01/08/19 14:10 Urine Opiates Screen NEGATIVE (NEGATIVE) 01/08/19 14:00 Urine Methadone Screen NEGATIVE (NEGATIVE) 01/08/19 14:00 Ur Barbiturates Screen NEGATIVE (NEGATIVE) 01/08/19 14:00 Ur Tricyclics Screen NEGATIVE (NEGATIVE) 01/08/19 14:00 Ur Phencyclidine Scrn NEGATIVE (NEGATIVE) 01/08/19 14:00 Amphetamines Screen NEGATIVE (NEGATIVE) 01/08/19 14:00 U Methamphetamines Scrn NEGATIVE (NEGATIVE) 01/08/19 14:00 U Benzodiazepines Scrn NEGATIVE (NEGATIVE) 01/08/19 14:00 U Cocaine Metab Screen NEGATIVE (NEGATIVE) 01/08/19 14:00 U Cannabinoids Screen NEGATIVE (NEGATIVE) 01/08/19 14:00 - Physical Exam Vitals and I&O: Vital Signs Temp 97.6 F 01/10/19 08:00 Pulse 64 01/10/19 08:00 Resp 18 01/10/19 08:00 BP 142/71 01/10/19 08:00 Pulse Ox 98 01/10/19 08:00 Intake & Output 01/09/19 01/10/19 01/10/19 18:59 06:59 18:59 Intake Total 1000 500 Balance 1000 500 Weight (lbs) 141.067 kg 141.067 kg Intake: Oral 1000 500 Other: # Voids 4 2 # Bowel Movements 0 Weight Source Bedscale Bedscale Active Medications: Current Medications Acetaminophen/Hydrocodone Bitart ([place] 10 Mg/325 Mg) 1 tab PO Q6H PRN PRN Reason: MODERATE PAIN Stop: 03/09/19 18:08 Last Admin: 01/09/19 23:29 Dose: 1 tab Atorvastatin Calcium (Lipitor) 20 mg PO DAILY [facility] Stop: 03/11/19 08:59 Gabapentin (Neurontin) 300 mg PO TID [facility] Stop: 03/10/19 20:59 Last Admin: 01/09/19 21:24 Dose: 300 mg Dextrose/Sodium Chloride (D5-0.45ns) 1,000 mls @ 75 mls/hr IV .[id number] [facility] Stop: 03/09/19 15:44 Last Admin: 01/09/19 05:29 Dose: 75 mls/hr Insulin Human Lispro (Humalog) 12 unit SUBQ AC [facility]; Protocol Stop: 03/10/19 07:29 Last Admin: 01/10/19 07:59 Dose: Not Given Levetiracetam (Keppra) 500 mg PO BID [facility] Stop: 03/10/19 16:59 Last Admin: 01/09/19 18:06 Dose: Not Given Magnesium Oxide (Mag-Oxide) 400 mg PO BID [facility] Stop: 03/09/19 16:59 Last Admin: 01/09/19 16:55 Dose: 400 mg Metformin HCl (Glucophage) 500 mg PO BID [facility] Stop: 03/10/19 16:59 Last Admin: 01/09/19 18:22 Dose: 500 mg Miscellaneous (Insulin Glargine,Hum.Rec.Anlog [Lantus Solostar]) 60 unit SUBQ BID [facility] Stop: 03/10/19 16:59 Miscellaneous (Insulin Lispro [Humalog]) 60 unit SQ BID SANG Stop: 03/10/19 16:59 Oxycodone HCl (Oxycontin) 10 mg PO Q12HR [facility]ANG Stop: 03/10/19 20:59 Last Admin: 01/09/19 21:25 Dose: 10 mg Oxycodone HCl (Oxycodone Ir) 15 mg PO BID PRN PRN Reason: Pain (Severe) Propranolol HCl (Inderal) 10 mg PO DAILY [facility] Stop: 03/11/19 08:59 Tizanidine HCl (Zanaflex) 4 mg PO TID SANG Stop: 03/10/19 20:59 Last Admin: 01/09/19 21:25 Dose: 4 mg Trazodone HCl (Desyrel) 100 mg PO DAILY [facility] Stop: 03/11/19 08:59 Vitamin D (Vitamin D3) 2,000 iu PO DAILY [facility] Stop: 03/11/19 08:59 General: Alert, Oriented x3 HEENT: Atraumatic Neck: Supple Cardiovascular: Regular rate Abdomen: Bowel sounds, Soft, Obese, no Tender, no Hepatomegaly, no Splenomegaly , no Distended, no Rebound, no Mass, no Guarding Psych/Mental Status: Mental status NL Assessment/Plan - Assessment Assessment: # Cirrhosis due to EtOH # Chronic back pain # Ongoing EtOH use No sign of cirrhotic decompensation. US reviewed, and there is no hepatoma or ascites. Mental status is intact, and no sign of encephalopathy. Pt is eating well, there is no failure to thrive (he is obese). Plan: - cont low sodium diet - HCC screen up to date. Next US due in 6 months - stop EtOH completely - outpt EGD for variceal screen - outpt GI follow up - mgmt of back pain as per primary. GI to see as needed, please call with any questions
--- NOTE | 2019-01-10 09:36 | Diagnostic Imaging Report ---
Ultrasound abdomen HISTORY: Hepatoma screening, ascites COMPARISON: None Technique: Sonography of the abdomen was performed in multiple planes. FINDINGS: Exam is limited due to body habitus. The liver demonstrates a heterogeneous echotexture and measures 17.8 cm. The liver margins are not well-defined however no obvious focal lesions. The gallbladder is suboptimally evaluated, however, no gallstones identified. The gallbladder wall measures 2 mm. The common bile duct measures 3 mm. Assessment of the pancreas is limited due to bowel gas. The right kidney measures 11.5 x 5.2 cm. The Left kidney measures 11.5 x 6.3 cm. The renal margins are not well-defined however, no obvious focal lesions or hydronephrosis. The spleen is mildly prominent measuring 12.2 x 9.4 cm. There is aneurysmal dilatation of the proximal abdominal aorta measuring up to 3.7 cm. The mid and distal abdominal aorta were not well visualized. No evidence of ascites. IMPRESSION: Limited exam due to body habitus. Mild hepatomegaly with heterogeneity which may reflect underlying hepatocellular disease. No discrete mass lesion identified, however if indicated, CT examination probable IV contrast is recommended given patient's clinical history. No evidence of ascites. Mild splenomegaly. There appears to be mild aneurysmal dilatation of the visualized proximal abdominal aorta. Note, this may be accentuated by technical factors as no aneurysm was identified on recent CT lumbar spine exam. Diffuse atherosclerosis was noted on recent CT exam. Consider follow-up CT with IV contrast if indicated.
--- NOTE | 2019-01-10 11:12 | Internal Medicine Prog Note ---
Internal Medicine Subjective - Subjective Service Date: 01/10/19 Patient seen and examined:: chart reviewed Patient is:: awake, in bed Patient Complaints of:: LBP Per staff patient has:: no adverse event, no episodes of fall Internal Medicine Objective - Results Result Diagrams: 01/10/19 05:40 01/10/19 05:40 Recent Labs: Laboratory Last Values WBC 2.6 Th/cmm (4.8-10.8) L 01/10/19 05:40 RBC 3.79 Mil/cmm (4.30-5.70) L 01/10/19 05:40 Hgb 12.1 gm/dL (12-16) 01/10/19 05:40 Hct 35.7 % (41.0-60) L 01/10/19 05:40 MCV 94.3 fl (80-99) 01/10/19 05:40 MCH 31.9 pg (26.0-30.0) H 01/10/19 05:40 MCHC Differential 33.8 pg (28.0-36.0) 01/10/19 05:40 RDW 13.0 % (11.5-20.0) 01/10/19 05:40 Plt Count 62 Th/cmm (150-400) L 01/10/19 05:40 MPV 6.8 fl 01/10/19 05:40 Add Manual Diff YES 01/10/19 05:40 Neutrophils % 49.5 % (40.0-80.0) 01/09/19 04:40 Band Neutrophils % 0 % (0-10) 01/10/19 05:40 Lymphocytes % 37.1 % (20.0-50.0) 01/09/19 04:40 Monocytes % 8.8 % (2.0-10.0) 01/09/19 04:40 Eosinophils % 4.6 % (0.0-5.0) 01/09/19 04:40 Basophils % 0.0 % (0.0-2.0) 01/09/19 04:40 Neutrophils (Manual) 50 % (40-80) 01/10/19 05:40 Lymphocytes 38 % (20-50) 01/10/19 05:40 Monocytes 8 % (2-10) 01/10/19 05:40 Eosinophils 4 % (0-5) 01/10/19 05:40 Basophils 0 % (0-3) 01/10/19 05:40 Platelet Estimate DECREASED PLATELETS (NORMAL) 01/10/19 05:40 PT 11.6 SECONDS (9.5-11.5) H 01/10/19 05:40 INR 1.13 (0.5-1.4) 01/10/19 05:40 Sodium 140 mEq/L (136-145) 01/10/19 05:40 Potassium 3.9 mEq/L (3.5-5.1) 01/10/19 05:40 Chloride 108 mEq/L (98-107) H 01/10/19 05:40 Carbon Dioxide 26.0 mEq/L (21.0-31.0) 01/10/19 05:40 Anion Gap 9.9 (7.0-16.0) 01/10/19 05:40 BUN 13 mg/dL (7-25) 01/10/19 05:40 Creatinine 0.7 mg/dL (0.7-1.3) 01/10/19 05:40 Est GFR ( Amer) > 60.0 ml/min (>90) 01/10/19 05:40 Est GFR (Non-Af Amer) > 60.0 ml/min 01/10/19 05:40 BUN/Creatinine Ratio 18.6 01/10/19 05:40 Glucose 118 mg/dL (70-105) H 01/10/19 05:40 POC Glucose 143 MG/DL (70 - 105) H 01/10/19 10:50 Whole Bld Lactic Acid 0.76 mmol/L (0.60-1.99) 01/08/19 12:57 Calcium 8.3 mg/dL (8.6-10.3) L 01/10/19 05:40 Phosphorus 3.0 mg/dL (2.5-5.0) 01/08/19 12:57 Magnesium 1.7 mg/dL (1.9-2.7) L 01/08/19 12:57 Total Bilirubin 1.4 mg/dL (0.3-1.0) H 01/08/19 12:57 AST 37 U/L (13-39) 01/08/19 12:57 ALT 41 U/L (7-52) 01/08/19 12:57 Alkaline Phosphatase 95 U/L (34-104) 01/08/19 12:57 Troponin I 0.03 ng/mL (0.01-0.05) 01/08/19 12:57 Total Protein 6.2 gm/dL (6.0-8.3) 01/08/19 12:57 Albumin 3.8 gm/dL (4.2-5.5) L 01/08/19 12:57 Globulin 2.4 gm/dL 01/08/19 12:57 Albumin/Globulin Ratio 1.6 (1.0-1.8) 01/08/19 12:57 TSH 0.86 uIU/ml (0.34-5.60) 01/08/19 12:57 Urine Source CLEAN C 01/08/19 14:10 Urine Color YELLOW 01/08/19 14:10 Urine Clarity CLEAR (CLEAR) 01/08/19 14:10 Urine pH 5.5 (4.6 - 8.0) 01/08/19 14:10 Ur Specific [place] >= 1.030 (1.005-1.030) 01/08/19 14:10 Urine Protein NEGATIVE mg/dL (NEGATIVE) 01/08/19 14:10 Urine Glucose (UA) NEGATIVE mg/dL (NEGATIVE) 01/08/19 14:10 Urine Ketones NEGATIVE mg/dL (NEGATIVE) 01/08/19 14:10 Urine Blood NEGATIVE (NEGATIVE) 01/08/19 14:10 Urine Nitrate NEGATIVE (NEGATIVE) 01/08/19 14:10 Urine Bilirubin NEGATIVE (NEGATIVE) 01/08/19 14:10 Urine Urobilinogen 2.0 E.U./dL (0.2 - 1.0) 01/08/19 14:10 Ur Leukocyte Esterase NEGATIVE (NEGATIVE) 01/08/19 14:10 Urine RBC NONE SEEN /hpf (0-5) 01/08/19 14:10 Urine WBC 0-2 /hpf (0-5) 01/08/19 14:10 Ur Epithelial Cells NONE SEEN /lpf (FEW) 01/08/19 14:10 Urine Bacteria FEW /hpf (NONE SEEN) 01/08/19 14:10 Urine Opiates Screen NEGATIVE (NEGATIVE) 01/08/19 14:00 Urine Methadone Screen NEGATIVE (NEGATIVE) 01/08/19 14:00 Ur Barbiturates Screen NEGATIVE (NEGATIVE) 01/08/19 14:00 Ur Tricyclics Screen NEGATIVE (NEGATIVE) 01/08/19 14:00 Ur Phencyclidine Scrn NEGATIVE (NEGATIVE) 01/08/19 14:00 Amphetamines Screen NEGATIVE (NEGATIVE) 01/08/19 14:00 U Methamphetamines Scrn NEGATIVE (NEGATIVE) 01/08/19 14:00 U Benzodiazepines Scrn NEGATIVE (NEGATIVE) 01/08/19 14:00 U Cocaine Metab Screen NEGATIVE (NEGATIVE) 01/08/19 14:00 U Cannabinoids Screen NEGATIVE (NEGATIVE) 01/08/19 14:00 - Physical Exam Vitals and I&O: Vital Signs Temp 97.6 F 01/10/19 08:00 Pulse 64 01/10/19 08:47 Resp 18 01/10/19 08:00 BP 142/71 01/10/19 08:47 Pulse Ox 98 01/10/19 08:00 Intake & Output 01/09/19 01/10/19 01/10/19 18:59 06:59 18:59 Intake Total 1000 500 Balance 1000 500 Weight (lbs) 141.067 kg 141.067 kg Intake: Oral 1000 500 Other: # Voids 4 2 # Bowel Movements 0 Weight Source Bedscale Bedscale Active Medications: Current Medications Acetaminophen/Hydrocodone Bitart ([place] 10 Mg/325 Mg) 1 tab PO Q6H PRN PRN Reason: MODERATE PAIN Stop: 03/09/19 18:08 Last Admin: 01/09/19 23:29 Dose: 1 tab Atorvastatin Calcium (Lipitor) 20 mg PO DAILY [facility] Stop: 03/11/19 08:59 Last Admin: 01/10/19 08:41 Dose: 20 mg Gabapentin (Neurontin) 300 mg PO TID [facility] Stop: 03/10/19 20:59 Last Admin: 01/10/19 08:43 Dose: 300 mg Dextrose/Sodium Chloride (D5-0.45ns) 1,000 mls @ 75 mls/hr IV .[id number] [facility] Stop: 03/09/19 15:44 Last Admin: 01/09/19 05:29 Dose: 75 mls/hr Insulin Human Lispro (Humalog) 12 unit SUBQ AC [facility]; Protocol Stop: 03/10/19 07:29 Last Admin: 01/10/19 10:59 Dose: Not Given Levetiracetam (Keppra) 500 mg PO BID [facility] Stop: 03/10/19 16:59 Last Admin: 01/10/19 08:43 Dose: 500 mg Magnesium Oxide (Mag-Oxide) 400 mg PO BID [facility] Stop: 03/09/19 16:59 Last Admin: 01/10/19 08:42 Dose: 400 mg Metformin HCl (Glucophage) 500 mg PO BID [facility] Stop: 03/10/19 16:59 Last Admin: 01/10/19 08:42 Dose: 500 mg Miscellaneous (Insulin Glargine,Hum.Rec.Anlog [Lantus Solostar]) 60 unit SUBQ BID [facility] Stop: 03/10/19 16:59 Last Admin: 01/10/19 11:00 Dose: Not Given Miscellaneous (Insulin Lispro [Humalog]) 60 unit SQ BID [facility] Stop: 03/10/19 16:59 Last Admin: 01/10/19 11:00 Dose: Not Given Oxycodone HCl (Oxycontin) 10 mg PO Q12HR [facility] Stop: 03/10/19 20:59 Last Admin: 01/10/19 08:42 Dose: 10 mg Oxycodone HCl (Oxycodone Ir) 15 mg PO BID PRN PRN Reason: Pain (Severe) Propranolol HCl (Inderal) 10 mg PO DAILY [facility] Stop: 03/11/19 08:59 Last Admin: 01/10/19 08:47 Dose: 10 mg Tizanidine HCl (Zanaflex) 4 mg PO TID [facility] Stop: 03/10/19 20:59 Last Admin: 01/10/19 08:47 Dose: 4 mg Trazodone HCl (Desyrel) 100 mg PO HS [facility] Stop: 03/11/19 20:59 Vitamin D (Vitamin D3) 2,000 iu PO DAILY [facility] Stop: 03/11/19 08:59 Last Admin: 01/10/19 08:43 Dose: 2,000 iu General: weak, alert HEENT: PERRLA, throat clear Neck: Supple, No JVD Lungs: CTAB Cardiovascular: Normal S1, Normal S2 Abdomen: soft, non-tender Extremities: other (Chronic weakness of bilateral lower extremities ) Neurological: alert, muscle weakness, other (chronic lower back pain.) Internal Medicine Assmt/Plan - Assessment Assessment: Failure to Thrive Cirrhosis of the liver due to EtOh Ongoing EtOh use Morbid Obesity Hypertension Diabetes Neuropathy Chronic Lower Back Pain Spinal Stenosis Chronic Bilateral Lower Extremities Weakness from Neuropathy. - Plan Plan: Continuation of care Monitor Labs, Liver Ultrasound Continue present meds as directed Monitor vitals, continue B/P meds Accu-check daily, continue DM meds Monitor Diet/Nutritional support Monitor Pain, Pain Management Physical Therapy and Rehabilitation Occupational Therapy Fall precaution Safety precaution Supportive care Will Monitor patient and continue present care management Nutritional Asmnt/Malnutr-PDOC - Dietary Evaluation Malnutrition Findings (Please click <Entered> for more info): Nutritional Asmnt/Malnutrition Start: 01/09/19 15: 37 Text: Status: Complete Freq: Protocol: Document 01/09/19 15:37 BROOK (Rec: 01/09/19 16:03 BROOK [email or web address]) Nutritional Asmnt/Malnutrition Patient General Information Nutritional Screening High Risk Diagnosis FTT, dehydration, diabetic, paraplegia Pertinent Medical Hx/Surgical Hx HTN, DM, neuropathy, morbid obesity, h/o liver failure with some revovery, cirrhosis, left knee surgery, esophrageal variceal surgery, brain surgery Subjective Information Pt seen sleeping in bed at time of visit, not answering RD greeting. Pt was on CCHO-75 diet, NPO at lunch for U/S. Per EMR, PO intake 100%. Current Diet Order/ Nutrition Support NPO Pertinent Medications lipitor, D5-0.45ns, mag-oxide, glucophage Pertinent Labs 01/09 glucose 148, POC 133-147, Ca 8.5 01/08 glucose 133, Mg 1.7, Alb 3.8 Nutritional Hx/Data Height 1.93 m Height (Calculated Centimeters) 193.0 Current Weight (lbs) 137.892 kg Weight (Calculated Kilograms) 137.9 Weight (Calculated Grams) 006413.1 [employer] Body Weight 214 Body Mass Index (BMI) 37.0 Weight Status Obese GI Symptoms GI Symptoms None Last BM none Difficult in: None Skin Integrity/Comment: intact Estimated Nutritional Goals BEE in Kcals: Adj wt of IBW Calories/Kcals/Kg 23-27 adj 107kg Kcals Calculated 3698-2420 Protein: Adj wt of IBW Protein g/k.8-1 Protein Calculated 86-107 Fluid: ml [id number] Nutritional Problem 1. Problem Problem altered nutrition related lab values Etiology hyperglycemia Signs/Symptoms: glucose 133-148 Malnutrition Alert Is there a minimum of two criteria No selected? Query Text:Check all the applicable criteria. A minimum of two criteria are recommended for diagnosis of either severe or non-severe malnutrition. Malnutrition Related to Morbid Obesity Malnutrition related to morbid obesity No Intervention/Recommendation Comments 1. Resume CCHO-75gm diet. Ok to have double meat and non- starch veggies if pt requests more food. 2. Monitor PO intake, wt, labs and skin integrity 3. F/U as moderate risk in 3-5 days Expected Outcomes/Goals Expected Outcomes/Goals 1. PO intake to meet at least 75% of nutritional needs. 2. Wt stability, skin to remain intact, labs to approach WNL.
[2019-01-10] MEDS: oxyCODONE 5 mg IR Tab PO PRN (14:06)
[2019-01-10] MEDS ORDERED: INSULIN HUMAN ISOPHANE (NPH) 100 UNITS/ML SUBQ SCH (21:00)
[2019-01-11] MEDS: Hydrocodone/APAP 10 mg/325 mg Tab PO PRN (02:34)
[2019-01-11] MEDS: INSULIN LISPRO SLIDING SCALE 100 UNITS/ML UNIT SUBQ SCH ×2 (06:35→13:07)
[2019-01-11] MEDS: Atorvastatin Calcium 10 MG TAB PO SCH (08:29)
[2019-01-11] MEDS: Vitamin D3 2,000 IU SGL PO SCH (08:29)
[2019-01-11] MEDS: oxyCODONE 5 mg IR Tab PO PRN (13:08)
[2019-01-11] MEDS ORDERED: oxyCODONE 5 mg IR Tab PO PRN (13:35)
[2019-01-11] MEDS ORDERED: Influenza Vaccine (5 yr & older) 0.5 ml Syr IM ONE (15:00)
== END 2019-01-11 15:23 | DRG 552 ==
LOC: ER 12:05 → MSI 16:53
PROVIDERS: ADMIT Internal Medicine; ATTEND Internal Medicine
DX: M48.061 Spinal stenosis, lumbar region without neurogenic claudication (principal); Z68.41 Body mass index [BMI] 40.0-44.9, adult; E11.9 Type 2 diabetes mellitus without complications; E66.01 Morbid (severe) obesity due to excess calories; K70.30 Alcoholic cirrhosis of liver without ascites; R62.7 Adult failure to thrive; E11.40 Type 2 diabetes mellitus with diabetic neuropathy, unspecified; G89.29 Other chronic pain; Z79.4 Long term (current) use of insulin
CPT/HCPCS: 36415-UA; 71045-TC; 72131-TC; 76700-TC; 80048-TC; 80053-TC; 80307; 81001-TC; 82105-90; 82948-90; 83605; 83735-TC; 84100-TC; 84443-TC; 84484-TC; 85007-TC; 85025-TC; 85610-TC; 93005; Z7610